=== PATIENT | male | born 1945 | race Caucasian/White ===

== ENCOUNTER 2017-06-26 15:29 | Inpatient (IN) | payer MEDICARE, MEDICAID ==
[2017-06-26] MEDS ORDERED: ASPIRIN 81 MG TABLET, CHEWABLE PO ONE (16:04)
--- NOTE | 2017-06-26 16:15 | ER Document Report ---
ED General - General Chief Complaint: General Weakness Stated Complaint: WEAKNESS/DIZZINESS Time Seen by Provider: 06/26/17 16:04 Notes: Patient was outside on this beautiful day to do some yard work because he is tired of being in his bedroom of his house all the time. He uses a walker to get around, but is never had a stroke. While outside today, he began to feel lightheaded and dizzy and then fell to the ground. He does not know what caused these events, but did vomit once. Patient says he had not eaten anything all day today because he does not have any food at home. He lives with his son who is disabled and unable to work because of a back injury. In the past, he has been a diabetic, although he is not sure if he is on any medicines for diabetes currently and is certainly not on insulin at this time. Patient has a history of cardiac disease. Says he has had 2 heart attacks. Describes some procedure when he lived in [place] where he had stents put in either his coronary arteries or some of the arteries leading to the groin area. Also has high blood pressure. Patient had a pacemaker about 10 years ago and the battery went after 5 years. He had a second pacemaker put in, but developed an infection and that was removed about 2 or 3 years ago. No one is recommended replacing the pacemaker. Patient was seen here at this hospital and had an EKG done on May 10, 2017, showing atrial flutter/fibrillation. Patient does not know of any problems with his heart irregularity. Past Medical History - Social History Smoking Status: Unknown if Ever Smoked Chew tobacco use (# tins/day): No Drug Abuse: None Family History: Reviewed & Not Pertinent Patient has suicidal ideation: No Patient has homicidal ideation: No - Past Medical History Cardiac Medical History: Reports: Hx Hypercholesterolemia, Hx Hypertension Pulmonary Medical History: Reports: Hx COPD Past Surgical History: Reports: Hx Pacemaker Review of Systems - Review of Systems Notes: REVIEW OF SYSTEMS: CONSTITUTIONAL : Denies fever. EENT: Denies eye, ear, nose or mouth or throat pain or other symptoms. CARDIOVASCULAR: Denies chest pain. RESPIRATORY: Denies cough, chest congestion, did feel a little shortness of breath. GASTROINTESTINAL: Denies abdominal pain or nausea, diarrhea, but did vomit once. GENITOURINARY: Denies difficulty or painful urinating, urinary frequency, blood in urine. MUSCULOSKELETAL: Denies back or neck pain. Denies joint pain or swelling. SKIN: Denies rash or skin lesions. NEUROLOGICAL: See HPI. Says he had a slight headache. Denies sensory loss or motor deficits. ALL OTHER SYSTEMS REVIEWED AND NEGATIVE. Physical Exam - Vital signs Vitals: Temp Pulse Resp BP Pulse Ox 97.5 F 57 L 18 102/55 L 96 06/26/17 15:49 06/26/17 15:49 06/26/17 15:49 06/26/17 15:49 06/26/17 15:49 Interpretation: Hypotensive - Minimal, Bradycardic - Minimal. No: Hypoxic - Notes Notes: PHYSICAL EXAMINATION: GENERAL: Well-appearing, in no acute distress. Vital signs are all essentially normal although his blood pressures a slight bit low. His pulse by EKG is 72. HEAD: Atraumatic, normocephalic. EYES: Pupils equal round and reactive to light, extraocular movements intact. ENT: oropharynx clear without exudates. Moist mucous membranes. NECK: Normal range of motion, supple. No carotid bruits heard. LUNGS: Breath sounds clear and equal bilaterally. HEART: Regular rate and rhythm without murmurs. ABDOMEN: Soft, nontender. No guarding or rebound. No masses. BACK: No tenderness throughout entire back. EXTREMITIES: Normal range of motion without pain. NEUROLOGICAL: Normal speech. Patient says that he is unable to walk except when using his walker for assistance. Normal sensory, motor, and reflex exams. Awake, alert, and oriented x3. PSYCH: Normal mood, normal affect. SKIN: Warm, dry, no rashes. Course - Re-evaluation Re-evalutation: 06/26/17 18:[address] Garber, hospitalist on today, agreed that I could go ahead and get a bed assignment for this patient and the oncoming night hospitalist will sheepskin pickler the patient at change of shift after 7 PM. - Vital Signs Vital signs: Temp Pulse Resp BP Pulse Ox 97.5 F 57 L 18 102/55 L 97 06/26/17 15:49 06/26/17 15:49 06/26/17 15:49 06/26/17 15:49 06/26/17 16:11 - Laboratory Result Diagrams: 06/26/17 16:57 06/26/17 16:57 Laboratory results interpreted by me: 06/26/17 16:57 Est GFR (Non-Af Amer) 57 L Direct Bilirubin 0.5 H ALT 17 L Creatine Kinase 54 L Total Protein 6.2 L Albumin 3.4 L - Diagnostic Test Radiology reviewed: Image reviewed, Reports reviewed - CT scan of the brain is normal, except for some atrophy. Radiology results interpreted by me: 06/26/17 18:40 Chest x-ray shows cardiomegaly and a small right pleural effusion. - EKG Interpretation by Me Rate: Normal Rhythm: A.Flutter - With 4:1 block. [place]/QRS: Left axis deviation, IVCD When compared to previous EKG there are: No significant change - From EKG of May 10, 2017. Discharge - Discharge Clinical Impression: Syncope, Atrial flutter, chronic Condition: Stable Disposition: ADMITTED OBSERVATION Admitting Provider: Hospitalist Unit Admitted: Telemetry Referrals: ZOHAIB BUTTERFIELD DO [Primary Care Provider] - Follow up as needed
--- NOTE | 2017-06-26 16:38 | RADIOLOGY REPORT (SQ) ---
EXAM DESCRIPTION: CHEST PA/LAT COMPLETED DATE/TIME: 06/26/2017 4:31 pm REASON FOR STUDY: Syncope COMPARISON: None. EXAM PARAMETERS: NUMBER OF VIEWS: two views TECHNIQUE: Digital Frontal and Lateral radiographic views of the chest acquired. RADIATION DOSE: NA LIMITATIONS: none FINDINGS: LUNGS AND PLEURA: Small right pleural effusion. MEDIASTINUM AND HILAR STRUCTURES: No masses or contour abnormalities. HEART AND VASCULAR STRUCTURES: Cardiomegaly. BONES: No acute findings. HARDWARE: None in the chest. OTHER: No other significant finding. IMPRESSION: Cardiomegaly. Small right pleural effusion. TECHNICAL DOCUMENTATION: JOB ID: [id number] [employer]- All Rights Reserved Reading location - IP/workstation name: [email or web address]
--- NOTE | 2017-06-26 16:58 | RADIOLOGY REPORT (SQ) ---
EXAM DESCRIPTION: CT HEAD WITHOUT COMPLETED DATE/TIME: 06/26/2017 4:44 pm REASON FOR STUDY: Syncope COMPARISON: None. TECHNIQUE: Axial images acquired through the brain without intravenous contrast. Images reviewed wi th bone, brain and subdural windows. Additional sagittal and coronal reconstructions were generated. Images stored on PACS. All CT scanners at this facility use dose modulation, iterative reconstruction, and/or weight based d osing when appropriate to reduce radiation dose to as low as reasonably achievable (ALARA). [facility]: Dose Right [facility]: CareDose [facility]: Dose Right [facility]: Teradose 4D [facility]: Placester RADIATION DOSE: CT Rad equipment meets quality standard of care and radiation dose reduction techniq ues were employed. CTDIvol: 53.2 mGy. DLP: 964 mGy-cm. mGy. LIMITATIONS: None. FINDINGS: VENTRICLES: Mild atrophy. CEREBRUM: No masses. No hemorrhage. No midline shift. No evidence for acute infarction. Mild chron ic small vessel ischemic disease. CEREBELLUM: No masses. No hemorrhage. No alteration of density. No evidence for acute infarction. EXTRAAXIAL SPACES: No fluid collections. No masses. ORBITS AND GLOBE: No intra- or extraconal masses. Normal contour of globe without masses. CALVARIUM: No fracture. PARANASAL SINUSES: Small amount of secretions in the right maxillary sinuses. No mucosal thickening or air-fluid levels. SOFT TISSUES: No mass or hematoma. OTHER: No other significant finding. IMPRESSION: 1. No evidence of acute event involving the brain. 2. Mild atrophy and mild chronic small vessel ischemic disease. EVIDENCE OF ACUTE STROKE: No COMMENT: Quality ID # [id number]: Final reports with documentation of one or more dose reduction techniques (e.g., Automated exposure control, adjustment of the mA and/or kV according to patient size, use of iterative reconstruction technique) TECHNICAL DOCUMENTATION: JOB ID: [id number] [employer]- All Rights Reserved Reading location - IP/workstation name: [email or web address]
[2017-06-26 17:36] LABS: ABSOLUTE EOSINOPHILS # (AUTO) 0.2 10^3/uL (0.0-0.6); ABSOLUTE LYMPHOCYTES (AUTO) 1.1 10^3/uL (0.5-4.7); ABSOLUTE MONOCYTES (AUTO) 0.7 10^3/uL (0.1-1.4); ABSOLUTE NEUT (AUTO) 4.6 10^3/uL (1.7-8.2); BASOPHILS % (AUTO) 0.5 % (0-2); EOSINOPHILS % (AUTO) 2.7 % (0-6); HEMATOCRIT 45.2 % (37.9-51.0); HEMOGLOBIN 15.1 g/dL (13.5-17.0); LYMPHOCYTES % (AUTO) 16.7 % (13-45); MEAN CORPUSCULAR HEMOGLOBIN 31.4 pg (27.0-33.4); MEAN CORPUSCULAR HGB CONC 33.4 g/dL (32.0-36.0); MEAN CORPUSCULAR VOLUME 94 fl (80-97); MONOCYTES % (AUTO) 10.5 % (3-13); PLATELET COUNT 212 10^3/uL (150-450); RED BLOOD COUNT 4.81 10^6/uL (4.35-5.55); RED CELL DISTRIBUTION WIDTH 13.8 % (11.5-14.0); SEGMENTED NEUTROPHILS % (AUTO) 69.6 % (42-78); TOTAL CELLS COUNTED % (AUTO) 100 %; WHITE BLOOD COUNT 6.6 10^3/uL (4.0-10.5)
[2017-06-26 17:51] LABS: ALANINE AMINOTRANSFERASE 17 U/L (21-72); ALBUMIN 3.4 g/dL (3.5-5.0); ALKALINE PHOSPHATASE 81 U/L (38-126); ANION GAP 7 (5-19); ASPARTATE AMINO TRANSFERASE 19 U/L (17-59); BILIRUBIN,DIRECT 0.5 mg/dL (0.0-0.4); BILIRUBIN,TOTAL 0.9 mg/dL (0.2-1.3); BLOOD UREA NITROGEN 14 mg/dL (7-20); CARBON DIOXIDE 29 mmol/L (22-30); CHLORIDE 102 mmol/L (98-107); CREATINE KINASE 54 U/L (55-170); GLUCOSE 96 mg/dL (75-110); POTASSIUM 4.7 mmol/L (3.6-5.0); SODIUM 138.2 mmol/L (137-145); TOTAL PROTEIN 6.2 g/dL (6.3-8.2)
[2017-06-26 17:55] LABS: CREATINE KINASE MB 1.42 ng/mL (<4.55); TROPONIN I 0.022 ng/mL
--- NOTE | 2017-06-26 19:19 | EKG REPORT ---
SEVERITY:- ABNORMAL ECG - A-FLUTTER W/ PREDOM 4:1 AV BLOCK, A-RATE 230 NONSPECIFIC IVCD WITH LAD INFERIOR INFARCT, AGE INDETERMINATE EXTENSIVE ANTERIOR INFARCT, AGE INDETERMINATE : Confirmed by: Jamie Guerra MD 26-Jun-2017 19:19:08
--- NOTE | 2017-06-26 21:10 | RADIOLOGY REPORT (SQ) ---
EXAM DESCRIPTION: CTA CHEST COMPLETED DATE/TIME: 06/26/2017 8:34 pm REASON FOR STUDY: syncope I11.0 HYPERTENSIVE HEART DISEASE WITH HEART FAILURE I50.31 ACUTE DIASTOL IC (CONGESTIVE) HEART FAILURE I11.9 HYPERTENSIVE HEART DISEASE WITHOUT HEART FAILURE COMPARISON: Chest x-ray 06/26/2017 TECHNIQUE: CT scan of the chest performed using helical scanning technique with dynamic intravenous contrast injection. Images reviewed with lung, soft tissue and bone windows. Reconstructed coronal and sagittal MPR images reviewed. Additional 3 dimensional post-processing performed to develop Maximal Intensity Projection images (MS P). All images stored on PACS. All CT scanners at this facility use dose modulation, iterative reconstruction, and/or weight based d osing when appropriate to reduce radiation dose to as low as reasonably achievable (ALARA). [facility]: Dose Right [facility]: CareDose [facility]: Dose Right [facility]: Teradose 4D [facility]: [employer] CONTRAST TYPE AND DOSE: contrast/concentration: Isovue 370.00 mg/ml; Total Contrast Delivered: 81.0 ml; Total Saline Delivered: 70.0 ml Contrast bolus optimized for the pulmonary arteries. Not diagnostic for the aorta. RENAL FUNCTION: BUN 14 creatinine 1.24 RADIATION DOSE: CT Rad equipment meets quality standard of care and radiation dose reduction techniq ues were employed. CTDIvol: 16.5 - 34.8 mGy. DLP: 1352 mGy-cm. . LIMITATIONS: None. FINDINGS: LUNGS AND PLEURA: There is a small right pleural effusion. Mild subsegmental atelectasis in the right base. No acute infiltrate. No mass. AORTA AND GREAT VESSELS: No aneurysm. Contrast bolus not optimized for the aorta. HEART: No pericardial effusion. Moderate to marked coronary artery calcifications. PULMONARY ARTERIES: No emboli visualized in the main pulmonary arteries or the segmental branches. HILAR AND MEDIASTINAL STRUCTURES: No identified masses or abnormal nodes. HARDWARE: None in the chest. UPPER ABDOMEN: No significant findings. Limited exam. THYROID AND OTHER SOFT TISSUES: No thyroid mass. Collateral vessels are seen in the left axilla and upper left chest. BONES: No acute abnormality is appreciated. 3D MIPS: Confirm above findings. OTHER: No other significant finding. IMPRESSION: There is no evidence of pulmonary emboli. There is a small to moderate right pleural ef fusion and mild subsegmental atelectasis in the right base. Collateral vessels are present in the le ft axilla and upper left chest. COMMENT: Quality ID # [id number]: Final reports with documentation of one or more dose reduction techniques (e.g., Automated exposure control, adjustment of the mA and/or kV according to patient size, use of iterative reconstruction technique) TECHNICAL DOCUMENTATION: JOB ID: [id number] [employer]- All Rights Reserved Reading location - IP/workstation name: [email or web address]
[2017-06-26 23:54] LABS: CREATINE KINASE MB 1.16 ng/mL (<4.55); TROPONIN I 0.019 ng/mL
[2017-06-27] MEDS: ATORVASTATIN CALCIUM 80 MG TABLET PO SCH ×2 (03:32→21:11)
--- NOTE | 2017-06-27 04:20 | PDOC H&P ---
History of Present Illness Admission Date/PCP: 06/26/17 18:42 ZOHAIB BUTTERFIELD DO History of Present Illness: ALFONSO ROBLES is a 71 year old male with history of coronary artery disease, status post stent placed 2, hypertension, permanent pacemaker status post removal following infection 3 years ago, A. fib/A flutter without anticoagulation, morbid obesity and generalized debility. Presents after an episode of lightheadedness resulting in a fall off of his seated walker. He denies injury but felt nauseous and vomited gastric content once. In the emergency room he is found to have atrial flutter with a 4-1 block and referred to the hospitalist for admission. Patient is unaware of his medication regiment, but complains of recent discontinuation of opiates for chronic low back pain. He also admits to recurrent falling and lower extremity weakness. Though denies stroke. Past Medical History Cardiac Medical History: Reports: Atrial Fibrillation, Hyperlipidema, Hypertension Pulmonary Medical History: Reports: Chronic Obstructive Pulmonary Disease (COPD) EENT Medical History: Reports: None Neurological Medical History: Reports: None Denies: Hemorrhagic CVA, Ischemic CVA, Seizures Endocrine Medical History: Reports: None Renal/ Medical History: Reports: None Malignancy Medical History: Reports: None GI Medical History: Reports: None Musculoskeltal Medical History: Reports: None Skin Medical History: Reports: None Psychiatric Medical History: Reports: None, Depression Traumatic Medical History: Reports: None Hematology: Reports: None Infectious Medical History: Reports: None Past Surgical History Past Surgical History: Reports: Pacemaker Social History Information Source: Patient Smoking Status: Former Smoker Last Time Smoked: 10 years ago Frequency of Alcohol Use: Rare Hx Recreational Drug Use: No Drugs: None Hx Prescription Drug Abuse: No - Advance Directive Resuscitation Status: Full Code Family History Family History: CAD Parental Family History Reviewed: Yes Children Family History Reviewed: Yes Sibling(s) Family History Reviewed.: Yes Medication/Allergy Home Medications: Amlodipine Besylate [Norvasc 5 mg Tablet] 5 mg PO DAILY 06/26/17 Aspirin [Ecotrin 81 mg EC Tablet] 81 mg PO DAILY 06/26/17 Furosemide [Lasix 20 mg Tablet] 20 mg PO DAILY 06/26/17 Lisinopril [Prinivil 40 mg Tablet] 40 mg PO DAILY 06/26/17 Methocarbamol [Robaxin 750 mg Tablet] 750 mg PO Q6HP PRN 06/26/17 Ondansetron HCl [Zofran 4 mg Tablet] 4 mg PO Q6HP PRN 06/26/17 Ranolazine [Ranexa] 500 mg PO Q12 06/26/17 Sertraline HCl [Zoloft 50 mg Tablet] 50 mg PO DAILY 06/26/17 Allergies/Adverse Reactions: No Known Allergies Allergy (Unverified 06/26/17 20:46) Review of Systems Constitutional: PRESENT: as per HPI, fatigue, weakness. ABSENT: chills, fever(s ), headache(s), weight gain, weight loss Eyes: ABSENT: visual disturbances Ears: ABSENT: hearing changes Cardiovascular: ABSENT: chest pain, dyspnea on exertion, edema, orthropnea, palpitations Respiratory: ABSENT: cough, hemoptysis Gastrointestinal: ABSENT: abdominal pain, constipation, diarrhea, hematemesis, hematochezia, nausea, vomiting Genitourinary: ABSENT: dysuria, hematuria Musculoskeletal: ABSENT: joint swelling Integumentary: ABSENT: rash, wounds Neurological: PRESENT: frequent falls, weakness - Lower extremity weakness. ABSENT: abnormal gait, abnormal speech, confusion, dizziness, focal weakness, syncope Psychiatric: ABSENT: anxiety, depression, homidical ideation, suicidal ideation Endocrine: ABSENT: cold intolerance, heat intolerance, polydipsia, polyuria Hematologic/Lymphatic: ABSENT: easy bleeding, easy bruising Physical Exam Vital Signs: Temp Pulse Resp BP Pulse Ox 98.0 F 67 20 137/80 H 98 06/26/17 22:30 06/26/17 22:30 06/26/17 22:30 06/26/17 22:30 06/26/17 22:30 Intake & Output 06/25/17 06/26/17 06/27/17 11:59 11:59 11:59 Intake Total 0 Output Total 0 Balance 0 Weight 122.5 kg General appearance: PRESENT: no acute distress, morbidly obese, well-developed, well-nourished Head exam: PRESENT: atraumatic, normocephalic Eye exam: PRESENT: conjunctiva pink, EOMI, PERRLA. ABSENT: scleral icterus Ear exam: PRESENT: normal external ear exam Mouth exam: PRESENT: moist, tongue midline Neck exam: ABSENT: carotid bruit, JVD, lymphadenopathy, thyromegaly Respiratory exam: PRESENT: clear to auscultation nacho. ABSENT: rales, rhonchi, wheezes Cardiovascular exam: PRESENT: RRR. ABSENT: diastolic murmur, rubs, systolic murmur Pulses: PRESENT: normal dorsalis pedis pul Vascular exam: PRESENT: normal capillary refill GI/Abdominal exam: PRESENT: normal bowel sounds, soft. ABSENT: distended, guarding, mass, organolmegaly, rebound, tenderness Rectal exam: PRESENT: deferred Extremities exam: PRESENT: full ROM. ABSENT: calf tenderness, clubbing, pedal edema Neurological exam: PRESENT: alert, awake, oriented to person, oriented to place , oriented to time, oriented to situation, CN II-XII grossly intact. ABSENT: motor sensory deficit Psychiatric exam: PRESENT: appropriate affect, normal mood. ABSENT: homicidal ideation, suicidal ideation Skin exam: PRESENT: dry, intact, warm. ABSENT: cyanosis, rash Results Laboratory Results: 06/26/17 23:08 CK-MB (CK-2) 1.16 Troponin I 0.019 Impressions: Chest/Abdomen CTA 06/26/17 00:00 IMPRESSION: There is no evidence of pulmonary emboli. There is a small to moderate right pleural effusion and mild subsegmental atelectasis in the right base. Collateral vessels are present in the left axilla and upper left chest. Chest X-Ray 06/26/17 16:06 IMPRESSION: Cardiomegaly. Small right pleural effusion. Head CT 06/26/17 16:06 IMPRESSION: 1. No evidence of acute event involving the brain. 2. Mild atrophy and mild chronic small vessel ischemic disease. EVIDENCE OF ACUTE STROKE: No Assessment & Plan - Diagnosis (1) Atrial flutter, chronic Is this a current diagnosis for this admission?: Yes Plan: Telemetry admission, orthostatic blood pressures, 2D echo and cardiology consult. (2) Syncope Qualifiers: Syncope type: unspecified Qualified Code(s): R55 - Syncope and collapse Is this a current diagnosis for this admission?: Yes Plan: Concern for cardiogenic syncope follow-up cardiology consult and 2D echo ordered , - Time Time Spent: 30 to 50 Minutes
[2017-06-27 06:15] LABS: HEMATOCRIT 43.2 % (37.9-51.0); HEMOGLOBIN 14.6 g/dL (13.5-17.0); MEAN CORPUSCULAR HEMOGLOBIN 31.8 pg (27.0-33.4); MEAN CORPUSCULAR HGB CONC 33.8 g/dL (32.0-36.0); MEAN CORPUSCULAR VOLUME 94 fl (80-97); PLATELET COUNT 193 10^3/uL (150-450); RED CELL DISTRIBUTION WIDTH 13.8 % (11.5-14.0); WHITE BLOOD COUNT 6.6 10^3/uL (4.0-10.5)
[2017-06-27 06:30] LABS: ANION GAP 7 (5-19); BLOOD UREA NITROGEN 16 mg/dL (7-20); CARBON DIOXIDE 27 mmol/L (22-30); CHLORIDE 104 mmol/L (98-107); CHOLESTEROL 131.46 mg/dL (0-200); CREATINE KINASE 48 U/L (55-170); GLUCOSE 128 mg/dL (75-110); POTASSIUM 4.5 mmol/L (3.6-5.0); SODIUM 138.4 mmol/L (137-145); TRIGLYCERIDES 117 mg/dL (<150)
[2017-06-27 06:40] LABS: CREATINE KINASE MB 1.11 ng/mL (<4.55); TROPONIN I 0.017 ng/mL
[2017-06-27 06:41] LABS: DIRECT LDL 85 mg/dL (<100)
[2017-06-27] MEDS: DOCUSATE SODIUM 100 MG CAPSULE PO SCH ×2 (09:10→18:06)
[2017-06-27] MEDS ORDERED: ACETAMINOPHEN 325 MG TABLET PO PRN (11:47)
[2017-06-27] MEDS ORDERED: MORPHINE SULFATE 10 MG/ML INJ IV PRN (11:48)
--- NOTE | 2017-06-27 12:28 | PDOC CONSULTATION ---
Consultation Consult Date: 06/26/17 Attending physician:: ASTRID CERRATO Consult reason:: Atrial fibrillation History of Present Illness Admission Date/PCP: 06/26/17 18:42 ZOHAIB BUTTERFIELD DO Patient complains of: Syncope History of Present Illness: ALFONSO ROBLES is a 71 year old male was outside on this beautiful day to do some yard work because he is tired of being in his bedroom of his house all the time. He uses a walker to get around, but is never had a stroke. While outside today, he began to feel lightheaded and dizzy and then fell to the ground. He does not know what caused these events, but did vomit once. Patient says he had not eaten anything all day today because he does not have any food at home. He lives with his son who is disabled and unable to work because of a back injury. In the past, he has been a diabetic, although he is not sure if he is on any medicines for diabetes currently and is certainly not on insulin at this time. Patient has a history of cardiac disease. Says he has had 2 heart attacks. Describes some procedure when he lived in [place] where he had stents put in either his coronary arteries or some of the arteries leading to the groin area. Also has high blood pressure. Patient had a pacemaker about 10 years ago and the battery went after 5 years. He had a second pacemaker put in, but developed an infection and that was removed about 2 or 3 years ago. No one is recommended replacing the pacemaker. Patient was seen here at this hospital and had an EKG done on May 10, 2017, showing atrial flutter/fibrillation. Patient does not know of any problems with his heart irregularity. This history obtained by ER physician was reviewed and confirmed. On repeated questioning patient denied any chest pain. He does have shortness of breath on exertion. Patient has noted bilateral lower extremity weakness. Patient denies any history of seizure disorder. Patient denied prior history of strokes , mini strokes, blood clots in the legs are in the lungs. Patient claims that since he moved to [place] from another town, she has not seen a a flow specialist. Patient told me that since his last pacemaker was removed, nobody really addressed the issue of whether he needs a new one on not. Past Medical History Cardiac Medical History: Reports: Hyperlipidema, Hypertension Pulmonary Medical History: Reports: Chronic Obstructive Pulmonary Disease (COPD) Past Surgical History Past Surgical History: Reports: Pacemaker - Battery change out and then explantation. Social History Information Source: Patient Smoking Status: Unknown if Ever Smoked - Advance Directive Resuscitation Status: Full Code Surrogate healthcare decision maker:: Patient's son is the surrogate decision-maker Family History Family History: Hypertension Parental Family History Reviewed: Yes Children Family History Reviewed: Yes Sibling(s) Family History Reviewed.: Yes Medication/Allergy Home Medications: Amlodipine Besylate [Norvasc 5 mg Tablet] 5 mg PO DAILY 06/26/17 Aspirin [Ecotrin 81 mg EC Tablet] 81 mg PO DAILY 06/26/17 Furosemide [Lasix 20 mg Tablet] 20 mg PO DAILY 06/26/17 Lisinopril [Prinivil 40 mg Tablet] 40 mg PO DAILY 06/26/17 Methocarbamol [Robaxin 750 mg Tablet] 750 mg PO Q6HP PRN 06/26/17 Ondansetron HCl [Zofran 4 mg Tablet] 4 mg PO Q6HP PRN 06/26/17 Ranolazine [Ranexa] 500 mg PO Q12 06/26/17 Sertraline HCl [Zoloft 50 mg Tablet] 50 mg PO DAILY 06/26/17 Allergies/Adverse Reactions: No Known Allergies Allergy (Unverified 06/26/17 20:46) Review of Systems Review of Systems: Please see history of present illness and past medical history as wall. Constitutional: No fever or chills reported. Head : No recent chronic headaches, recent head injury. Eyes: No recent eye pain, diplopia, redness, discharge, acute visual changes. Ears: No recent chronic ear pain, acute hearing loss, ear discharge. Oral cavity: No recent ulcerations, bleeding, oral cavity discomfort. Neck: No recent acute neck pain reported. Hematologic: No recent easy bruising or bleeding or hematologic malignancy reported. Lymphatic: No recent lymphatic malignancy, chronic lymphadenopathy reported yet Cardiovascular system review: See history of present illness. Respiratory system review: No recent chronic cough, hemoptysis, blood clots in the lungs reported. Mild Shortness of breath on exertion Gastrointestinal system review: Negative for any recent acute or chronic abdominal pain, hematemesis, melena, recent change in bowel habits. Describes history of reflux Genitourinary system review: No recent acute or chronic hematuria, flank pain, UTI etc. reported. Skin system review: Negative for any recent abnormal bruising, no rash, no pruritus reported. Neurologic: No prior history of strokes, mini strokes, seizure disorder. Psychologic: No history of major psychosis or major depression reported. History of minor depression reported. Musculoskeletal: Minor aches and pains reported. No acute joint swelling reported. Describes generalized muscle weakness and some falls. Endocrine: No recent polyuria, polydipsia, recent heat or cold intolerance. Physical Exam Vital Signs: Temp Pulse Resp BP Pulse Ox 97.5 F 57 L 18 102/55 L 97 06/26/17 15:49 06/26/17 15:49 06/26/17 15:49 06/26/17 15:49 06/26/17 16:11 Exam: GENERAL: well-nourished and in no acute distress. Alert and oriented x3 HEAD: Atraumatic, normocephalic. EYES: Pupils equal round and reactive to light, extraocular movements intact, sclera anicteric, conjunctiva are normal. ENT: TMs normal, nares patent, oropharynx clear without exudates. Moist mucous membranes. No oral ulcerations or bleeding gums noted NECK: supple without lymphadenopathy. Trachea is central. No cervical or axillary lymphadenopathy noted. Carotids are 2+, JVD WNL LUNGS: Respiration seems nonlabored, no significant accessory muscle action noted. Breath sounds clear to auscultation bilaterally and equal noted. No wheezes rales or rhonchi noted. No significant dullness noted on percussion. CHEST: Palpation of the chest wall shows no significant chest wall tenderness. No other significant abnormalities noted. 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 ABDOMEN: Soft, no significant tenderness appreciated, normoactive bowel sounds. No guarding, no rebound. No rigidity noted . No masses appreciated. EXTREMITIES: Pedal pulses are 1-2+, no calf tenderness noted. No clubbing or cyanosis.trace to 1+ pedal edema noted NEUROLOGICAL: Focused neurological exam showed no significant neurologic deficit. Normal speech, no focal weakness appreciated. PSYCH: Normal mood, normal affect. Judgment and insight within normal limits. SKIN: No significant ecchymosis, skin is noted to be warm. MUSCULOSKELETAL EXAM: No significant acute joint swelling noted. Results EKG Comments: Atrial flutter with controlled ventricular response. No acute ST-T wave changes are noted. Impressions: Chest X-Ray 06/26/17 16:06 IMPRESSION: Cardiomegaly. Small right pleural effusion. Head CT 06/26/17 16:06 IMPRESSION: 1. No evidence of acute event involving the brain. 2. Mild atrophy and mild chronic small vessel ischemic disease. EVIDENCE OF ACUTE STROKE: No Assessment & Plan - Diagnosis (1) Atrial flutter, chronic Is this a current diagnosis for this admission?: Yes (2) Syncope Qualifiers: Syncope type: unspecified Qualified Code(s): R55 - Syncope and collapse Is this a current diagnosis for this admission?: Yes (3) Hypertension Qualifiers: Hypertension type: essential hypertension Qualified Code(s): I10 - Essential (primary) hypertension Is this a current diagnosis for this admission?: Yes (4) Falls Qualifiers: Encounter type: sequela Qualified Code(s): W19.XXXS - Unspecified fall, sequela Is this a current diagnosis for this admission?: Yes (5) Coronary artery disease Qualifiers: Coronary Disease-Associated Artery/Lesion type: [place] artery [place] vs. transplanted heart: [place] heart Associated angina: angina presence unspecified Qualified Code(s): I25.10 - Atherosclerotic heart disease of [place] coronary artery without angina pectoris (6) Obesity Qualifiers: Obesity type: unspecified obesity type Obesity classification: unspecified obesity classification Is this a current diagnosis for this admission?: Yes - Notes Notes: Atrial flutter fibrillation: At this point rate is well controlled. Recommend chronic anticoagulation. May need OT PT assessment because of history of fall. Syncope: Multiple differential diagnosis includes cardiac dysrhythmia, either bradycardia or tachyarrhythmia, postural hypotension, vertebrobasilar insufficiency etc. are in the differential diagnosis. Recommend cardiac monitoring. Patient may actually need cardiac monitoring as an outpatient. Hypertension: Currently stable. Recommend MELODY inhibitor/ARB as preferred agent. Falls: Patient will benefit from physical therapy, OT PT assessment. Coronary artery disease: Patient noted to have coronary calcification versus stents in the coronaries. Recommend statin therapy, antiplatelet therapy. Obesity: Patient will benefit from weight loss. Patient will also benefit from evaluation for any underlying sleep apnea as treatment of underlying sleep apnea may prevent future cardiovascular event and also needs for pacemaker. - Time Time Spent: 30 to 50 Minutes - CODE STATUS was discussed, patient remains full code. Surrogate decision-maker unchanged. Multiple medical problems were addressed. More than 50% of the time spent coordinating care, discussing management plans with involved caregivers. Management plans discussed with involved personnels. Medical decision making was of moderate to high complexity , patient's has multiple comorbidities. Medications reviewed and adjusted accordingly: Yes
--- NOTE | 2017-06-27 12:30 | PDOC PROGRESS REPORT ---
Subjective Progress Note for:: 06/27/17 Subjective:: Patient seems to be doing better with gradual improvement. Pt is denying any chest arm or neck discomfort. Patient denying any PND, orthopnea. Patient denied any sustained palpitations, dizziness, syncope, near syncope. Patient denying any fever chills. Patient denying any other significant discomfort. Patient is maintaining atrial flutter fibrillation. Review of systems: Rest review of systems negative. Medications: Medications have been reviewed. Reason For Visit: AFLUTTER SYNCOPE Physical Exam Vital Signs: Temp Pulse Resp BP Pulse Ox 98.0 F 56 L 18 125/46 L 99 06/27/17 10:56 06/27/17 10:56 06/27/17 10:56 06/27/17 10:56 06/27/17 10:56 Intake & Output 06/26/17 06/27/17 06/28/17 06:59 06:59 06:59 Intake Total 810 600 Output Total 650 400 Balance 160 200 Weight 123 kg Exam: GENERAL: well-nourished and in no acute distress. Alert and oriented x3 HEAD: Atraumatic, normocephalic. EYES: Pupils equal round and reactive to light, extraocular movements intact, sclera anicteric, conjunctiva are normal. ENT: TMs normal, nares patent, oropharynx clear without exudates. Moist mucous membranes. No oral ulcerations or bleeding gums noted NECK: supple without lymphadenopathy. Trachea is central. No cervical or axillary lymphadenopathy noted. Carotids are 2+, JVD WNL LUNGS: Respiration seems nonlabored, no significant accessory muscle action noted. Breath sounds clear to auscultation bilaterally and equal noted. No wheezes rales or rhonchi noted. No significant dullness noted on percussion. CHEST: Palpation of the chest wall shows no significant chest wall tenderness. No other significant abnormalities noted. 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 ABDOMEN: Soft, no significant tenderness appreciated, normoactive bowel sounds. No guarding, no rebound. No rigidity noted . No masses appreciated. EXTREMITIES: Pedal pulses are 1-2+, no calf tenderness noted. No clubbing or cyanosis.trace to 1+ pedal edema noted NEUROLOGICAL: Focused neurological exam showed no significant neurologic deficit. Normal speech, no focal weakness appreciated. PSYCH: Normal mood, normal affect. Judgment and insight within normal limits. SKIN: No significant ecchymosis, skin is noted to be warm. MUSCULOSKELETAL EXAM: No significant acute joint swelling noted. Results Laboratory Results: 06/27/17 05:17 06/27/17 05:17 06/27/17 06/27/17 05:17 05:17 WBC 6.6 RBC 4.60 Hgb 14.6 Hct 43.2 MCV 94 MCH 31.8 MCHC 33.8 RDW 13.8 Plt Count 193 Sodium 138.4 Potassium 4.5 Chloride 104 Carbon Dioxide 27 Anion Gap 7 BUN 16 Creatinine 1.05 Est GFR ( Amer) > 60 Est GFR (Non-Af Amer) > 60 Glucose 128 H Calcium 9.0 Triglycerides 117 Cholesterol 131.46 LDL Cholesterol Direct 85 VLDL Cholesterol 23.0 HDL Cholesterol 28 L 06/26/17 06/27/17 06/27/17 23:08 05:17 05:17 Creatine Kinase 48 L CK-MB (CK-2) 1.16 1.11 Troponin I 0.019 0.017 EKG Comments: Shows atrial flutter fibrillation with controlled ventricular response Impressions: Chest/Abdomen CTA 06/26/17 00:00 IMPRESSION: There is no evidence of pulmonary emboli. There is a small to moderate right pleural effusion and mild subsegmental atelectasis in the right base. Collateral vessels are present in the left axilla and upper left chest. Chest X-Ray 06/26/17 16:06 IMPRESSION: Cardiomegaly. Small right pleural effusion. Head CT 06/26/17 16:06 IMPRESSION: 1. No evidence of acute event involving the brain. 2. Mild atrophy and mild chronic small vessel ischemic disease. EVIDENCE OF ACUTE STROKE: No Assessment & Plan - Diagnosis (1) Atrial flutter, chronic Is this a current diagnosis for this admission?: Yes (2) Syncope Qualifiers: Syncope type: unspecified Qualified Code(s): R55 - Syncope and collapse Is this a current diagnosis for this admission?: Yes (3) Hypertension Qualifiers: Hypertension type: essential hypertension Qualified Code(s): I10 - Essential (primary) hypertension Is this a current diagnosis for this admission?: Yes (4) Falls Qualifiers: Encounter type: sequela Qualified Code(s): W19.XXXS - Unspecified fall, sequela Is this a current diagnosis for this admission?: Yes (5) Coronary artery disease Qualifiers: Coronary Disease-Associated Artery/Lesion type: [place] artery [place] vs. transplanted heart: [place] heart Associated angina: angina presence unspecified Qualified Code(s): I25.10 - Atherosclerotic heart disease of [place] coronary artery without angina pectoris (6) Obesity Qualifiers: Obesity type: unspecified obesity type Obesity classification: unspecified obesity classification Is this a current diagnosis for this admission?: Yes (7) CHF (congestive heart failure) Qualifiers: Heart failure type: combined systolic and diastolic Heart failure chronicity: chronic Qualified Code(s): I50.42 - Chronic combined systolic ( congestive) and diastolic (congestive) heart failure Is this a current diagnosis for this admission?: No - Notes Notes: Telemetry strips reviewed. No significant bradycardia noted. 2D echo reviewed. Shows mildly depressed LVEF. Will make medication changes. CTA results of the chest are reviewed. Patient is noted to have coronary calcification versus stent in the LAD and circumflex distribution. Atrial flutter fibrillation: At this point rate is well controlled. Recommend chronic anticoagulation. May need OT PT assessment because of history of fall. Syncope: Multiple differential diagnosis includes cardiac dysrhythmia, either bradycardia or tachyarrhythmia, postural hypotension, vertebrobasilar insufficiency etc. are in the differential diagnosis. Recommend cardiac monitoring. Patient may actually need cardiac monitoring as an outpatient. Hypertension: Currently stable. Recommend MELODY inhibitor/ARB as preferred agent. Falls: Patient will benefit from physical therapy, OT PT assessment. Coronary artery disease: Patient noted to have coronary calcification versus stents in the coronaries. Recommend statin therapy, antiplatelet therapy. Obesity: Patient will benefit from weight loss. Patient will also benefit from evaluation for any underlying sleep apnea as treatment of underlying sleep apnea may prevent future cardiovascular event and also needs for pacemaker. CHF: Seems fairly compensated. Patient would benefit from salt and fluid restriction. Will add small dose of MELODY inhibitor/ARB. Beta-blockers currently contraindicated due to bradycardia. - Time Time with patient: Greater than 35 minutes - CODE STATUS was discussed, patient remains full code. Surrogate decision-maker unchanged. Multiple medical problems were addressed. More than 50% of the time spent coordinating care, discussing management plans with involved caregivers. Management plans discussed with involved personnels. Medical decision making was of moderate to high complexity, patient's has multiple comorbidities. Medications reviewed and adjusted accordingly: Yes
[2017-06-27] MEDS ORDERED: LISINOPRIL 5 MG TABLET PO ONE (13:30)
[2017-06-27] MEDS ORDERED: INFLUENZA ADLT QUAD (36MOS+) 2017-18 VAC 0.5 ML SYR IM PRN (16:25)
[2017-06-27] MEDS: APIXABAN 2.5 MG TABLET PO SCH (18:01)
[2017-06-27] MEDS: OXYCODONE HCL IR 5 MG TABLET PO PRN ×2 (18:03→23:14)
--- NOTE | 2017-06-27 18:42 | XCELERA REPORT ---
[address] [address] Transthoracic Echocardiogram Report Name: ALFONSO ROBLES Age: 71 yrs Gender: Male : 1945 Patient Status: Inpatient Patient Location: [address] [place] [address] Study Date: 06/27/2017 09:26 AM Height: 71 in Weight: 271 lb BSA: 2.4 m2 Procedure: A complete two-dimensional transthoracic echocardiogram was performed (2D, M-mode, spectral and color flow Doppler). The study was technically adequate with some images being suboptimal in quality. Reason For Study: syncope Ordering Physician: ASTRID CERRATO Performed By: Tamiko Markham Interpretation Summary The Ejection Fraction estimate is 40-45% Left ventricular systolic function is mild to moderately reduced. There is mild concentric left ventricular hypertrophy. Doppler measurements suggest pseudonormalized left ventricular relaxation, which is associated with grade II/IV or mild to moderate diastolic dysfunction There is apical wall akinesis The left ventricle is mildly dilated. Borderline right ventricular enlargement. The right ventricular systolic function is normal. The left atrium is severely dilated. The right atrium is mildly dilated. There is a trace amount of mitral regurgitation There is no mitral valve stenosis. No aortic regurgitation is present. There is no aortic valve stenosis There is a trace or physiologic amount of tricuspid regurgitation Tricuspid regurgitation jet envelope not well defined to measure RV systolic pressure accurately. The aortic root is not well visualized. The inferior vena cava appeared normal and decreased > 50% with respiration (RAP 5-10 mmHg) There is no pericardial effusion. MMode/2D Measurements & Calculations RVDd: 3.9 cm LVIDd: 6.5 cm FS: 22.5 % Ao root diam: IVSd: 1.1 cm LVIDs: 5.0 cm EDV(Teich): 3.3 cm LVPWd: 1.1 cm 212.4 ml Ao root area: ESV(Teich): 118.3 ml 8.4 cm2 EF(Teich): 44.3 % LA dimension: 5.2 cm LVLd ap4: 9.3 cm SV(MOD-sp4): EDV(MOD-sp4): 53.0 ml 135.0 ml LVLs ap4: 8.1 cm ESV(MOD-sp4): 82.0 ml EF(MOD-sp4): 39.3 % Doppler Measurements & Calculations MV E max aura: MV P1/2t max aura: Ao V2 max: LV V1 max P.3 cm/sec 125.9 cm/sec 142.5 cm/sec 1.8 mmHg MV A max aura: MV P1/2t: 62.6 msec Ao max PG: LV V1 max: 54.8 cm/sec MVA(P1/2t): 3.5 cm2 8.1 mmHg 67.1 cm/sec MV E/A: 2.3 MV dec slope: 588.8 cm/sec2 MV dec time: 0.20 sec PA V2 max: PI end-d aura: TR max aura: 80.5 cm/sec 152.0 cm/sec 234.8 cm/sec PA max P.6 mmHg TR max P.1 mmHg Left Ventricle The left ventricle is mildly dilated. There is mild concentric left ventricular hypertrophy. Left ventricular systolic function is mild to moderately reduced. The Ejection Fraction estimate is 40-45%. Doppler measurements suggest pseudonormalized left ventricular relaxation, which is associated with grade II/IV or mild to moderate diastolic dysfunction. There is apical wall akinesis. Right Ventricle Borderline right ventricular enlargement. There is normal right ventricular wall thickness. The right ventricular systolic function is normal. Atria The right atrium is mildly dilated. The left atrium is severely dilated. Interarterial septum not well visualized and not well dopplered. Cannot comment on ASD/PFO presence. Mitral Valve There is mild mitral leaflet calcification. There is mild mitral annular calcification. There is no mitral valve stenosis. There is a trace amount of mitral regurgitation. Aortic Valve The aortic valve is mildly calcified. There is no aortic valve stenosis. No aortic regurgitation is present. Tricuspid Valve The tricuspid valve is not well visualized secondary to technical limitations. There is no tricuspid stenosis. There is a trace or physiologic amount of tricuspid regurgitation. Tricuspid regurgitation jet envelope not well defined to measure RV systolic pressure accurately. Pulmonic Valve The pulmonic valve is not well visualized. Great Vessels The aortic root is not well visualized. The inferior vena cava appeared normal and decreased > 50% with respiration (RAP 5-10 mmHg). Effusions There is no pericardial effusion. : ASTRID CERRATO > Jamie Guerra
--- NOTE | 2017-06-27 22:15 | PDOC PROGRESS REPORT ---
Subjective Progress Note for:: 06/27/17 Subjective:: Syncope episode described after the activity of raking leaves. He recently had a 30 day security monitor and results were pending. His nurse was able to obtain these records and they indicated that he is in aflutter w/ variable block with periods of bradycardia, frequently in his sleep. His past record also demonstrates SSS. Patient had a prior pacemaker inserted, which was years later replaced by Dr. Benson in [place], but unfortunately suffered a bad course with infection and removal. On f/u with Dr. Benson he was told that he could avoid having it replaced at that time. I believe that his bradycardia is symptomatic. This was discussed with Dr. Stark. He was concern also about ANGELY contributing here. Patient has maintained an acceptable HR on monitor while inpatient. He has no electricity at home and limited food access. D/c planning requested for help. Patient is interested in doing f/u appts w/ Dr. 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 Patient takes significant opiate pain medicaitons which maybe contributing to his cardiovascular instabilty at home. Reason For Visit: AFLUTTER SYNCOPE Physical Exam Vital Signs: Temp Pulse Resp BP Pulse Ox 98.2 F 70 18 120/57 L 99 06/27/17 15:00 06/27/17 19:00 06/27/17 15:00 06/27/17 15:02 06/27/17 15:02 Intake & Output 06/26/17 06/27/17 06/28/17 06:59 06:59 06:59 Intake Total 810 1310 Output Total 650 975 Balance 160 335 Weight 123 kg General appearance: PRESENT: no acute distress, disheveled Head exam: PRESENT: atraumatic, normocephalic Eye exam: PRESENT: EOMI, PERRLA Ear exam: PRESENT: TM's normal bilaterally Mouth exam: PRESENT: neck supple Neck exam: PRESENT: JVD. ABSENT: full ROM Respiratory exam: ABSENT: accessory muscle use, chest wall tenderness, rales, rhonchi, wheezes Cardiovascular exam: PRESENT: irregular rhythm, +S1, +S2. ABSENT: clicks, gallop Pulses: PRESENT: normal radial pulses, normal dorsalis pedis pul Vascular exam: PRESENT: normal capillary refill. ABSENT: pallor GI/Abdominal exam: PRESENT: normal bowel sounds. ABSENT: mass Extremities exam: ABSENT: calf tenderness, joint swelling Musculoskeletal exam: PRESENT: full ROM. ABSENT: deformity Neurological exam: PRESENT: alert, oriented to person, oriented to place, oriented to time, oriented to situation Psychiatric exam: ABSENT: agitated, anxious Focused psych exam: ABSENT: delusional, paranoid Skin exam: ABSENT: abrasion, cyanosis, mottled Results Laboratory Results: 06/27/17 05:17 06/27/17 05:17 06/27/17 06/27/17 05:17 05:17 WBC 6.6 RBC 4.60 Hgb 14.6 Hct 43.2 MCV 94 MCH 31.8 MCHC 33.8 RDW 13.8 Plt Count 193 Sodium 138.4 Potassium 4.5 Chloride 104 Carbon Dioxide 27 Anion Gap 7 BUN 16 Creatinine 1.05 Est GFR ( Amer) > 60 Est GFR (Non-Af Amer) > 60 Glucose 128 H Calcium 9.0 Triglycerides 117 Cholesterol 131.46 LDL Cholesterol Direct 85 VLDL Cholesterol 23.0 HDL Cholesterol 28 L 06/26/17 06/27/17 06/27/17 23:08 05:17 05:17 Creatine Kinase 48 L CK-MB (CK-2) 1.16 1.11 Troponin I 0.019 0.017 Impressions: Chest/Abdomen CTA 06/26/17 00:00 IMPRESSION: There is no evidence of pulmonary emboli. There is a small to moderate right pleural effusion and mild subsegmental atelectasis in the right base. Collateral vessels are present in the left axilla and upper left chest. Chest X-Ray 06/26/17 16:06 IMPRESSION: Cardiomegaly. Small right pleural effusion. Head CT 06/26/17 16:06 IMPRESSION: 1. No evidence of acute event involving the brain. 2. Mild atrophy and mild chronic small vessel ischemic disease. EVIDENCE OF ACUTE STROKE: No Assessment & Plan - Plan Summary Plan Summary: (1) Atrial flutter, chronic Is this a current diagnosis for this admission?: Yes Plan: orthostatics appeared normal today. holter report from outside suggests bradycardia with his variable block aflutter , suspect this is the etiology, and he will likely benefit from a pacemaker. Dr. Stark following. starting anticoagulation. starting low dose MELODY, agree that patient's rate cannot support a Beta vincent. (2) Syncope Qualifiers: Syncope type: unspecified Qualified Code(s): R55 - Syncope and collapse Is this a current diagnosis for this admission?: Yes Plan: see above (3) Chronic lower extremity pain giving lower dose oxycodone, tylenol. monitor
[2017-06-28] MEDS: OXYCODONE HCL IR 5 MG TABLET PO PRN (04:50)
[2017-06-28] MEDS: APIXABAN 2.5 MG TABLET PO SCH (09:52)
[2017-06-28] MEDS: DOCUSATE SODIUM 100 MG CAPSULE PO SCH (09:54)
[2017-06-28] MEDS ORDERED: LISINOPRIL 5 MG TABLET PO SCH (10:00)
[2017-06-28 10:58] VITALS: BP 119/67
--- NOTE | 2017-06-28 12:27 | PDOC TRANSFER SUMMARY ---
General Admission Date/PCP: 06/26/17 18:42 ZOHAIB BUTTERFIELD Admission Date: 06/26/17 Transfer Date: 06/28/17 Accepting Facility: [facility] Accepting Physician: Dr. Lopes Resuscitation Status: Full Code - Transfer Diagnosis (1) Syncope Is this a current diagnosis for this admission?: Yes (2) Bradycardia Is this a current diagnosis for this admission?: Yes (3) Atrial flutter, chronic Is this a current diagnosis for this admission?: Yes (4) CHF (congestive heart failure) Is this a current diagnosis for this admission?: Yes (5) Coronary artery disease Is this a current diagnosis for this admission?: Yes (6) Falls Is this a current diagnosis for this admission?: Yes (7) Hypertension Is this a current diagnosis for this admission?: Yes (8) Obesity Is this a current diagnosis for this admission?: Yes - Transfer Medications Home Medications: Aspirin [Ecotrin 81 mg EC Tablet] 81 mg PO DAILY 06/26/17 Ondansetron HCl [Zofran 4 mg Tablet] 4 mg PO Q6HP PRN 06/26/17 Ranolazine [Ranexa] 500 mg PO Q12 06/26/17 Sertraline HCl [Zoloft 50 mg Tablet] 50 mg PO DAILY 06/26/17 Transfer Medications: Current Medications Acetaminophen (Tylenol 325 Mg Tablet) 650 mg PO Q4HP PRN PRN Reason: ps 2-3 Stop: 07/27/17 11:46 Last Admin: 06/27/17 12:27 Dose: 650 mg Apixaban (Eliquis 2.5 Mg Tablet) 5 mg PO BID [facility] Stop: 07/27/17 17:59 Last Admin: 06/28/17 09:52 Dose: 5 mg Atorvastatin Calcium (Lipitor 80 Mg Tablet) 80 mg PO QHS [facility] Stop: 07/26/17 21:59 Last Admin: 06/27/17 21:11 Dose: 80 mg Docusate Sodium (Colace 100 Mg Capsule) 100 mg PO BID [facility] Stop: 07/27/17 09:59 Last Admin: 06/28/17 09:54 Dose: Not Given Influenza Virus Vaccine Quadrival (Fluzone Adlt Quad [id number] Vac 0.5 Ml Syr) 0.5 ml IM .DISCHARGE PRN PRN Reason: THIS MED IS NOT "PRN" Stop: 07/27/17 16:24 Lisinopril (Prinivil 5 Mg Tablet) 2.5 mg PO DAILY [facility] Stop: 07/28/17 09:59 Last Admin: 06/28/17 09:53 Dose: 2.5 mg Morphine Sulfate (Morphine 10 Mg/Ml Inj) 2 mg IV Q6HP PRN PRN Reason: ps 4-5 Stop: 07/04/17 11:47 Oxycodone HCl (Oxy-Ir 5 Mg Tablet) 5 mg PO Q6HP PRN PRN Reason: ps 4-5 Stop: 07/04/17 17:07 Last Admin: 06/28/17 04:50 Dose: 5 mg Sodium Chloride (Saline Flush 2.5 Ml Monoject Prefil Syrin) 2.5 ml IV Q8 [facility] Stop: 07/26/17 21:59 Last Admin: 06/28/17 04:50 Dose: 2.5 ml - Allergies Allergies/Adverse Reactions: No Known Allergies Allergy (Unverified 06/26/17 20:46) - Diet/Activity Discharge Diet: Cardiac Hospital Course Hospital Course: ALFONSO ROBLES is a 71 year old male with history of coronary artery disease, status post stent placed 2, hypertension, permanent pacemaker status post removal following infection 3 years ago, A. fib/A flutter without anticoagulation, morbid obesity and generalized debility. Presents after an episode of lightheadedness resulting in a fall off of his seated walker. He denies injury but felt nauseous and vomited gastric content once. In the emergency room he is found to have atrial flutter with a 4-1 block and referred to the hospitalist for admission. Patient is unaware of his medication regiment, but complains of recent discontinuation of opiates for chronic low back pain. He also admits to recurrent falling and lower extremity weakness. Though denies stroke. Patient describes taking significant opiate medication doses at home that may be contributing to his falls history. However, without significant opiates here inpatient he continued to display variable block aflutter with Bradycardia in the 50s, with occassional symptom complaints of dizziness. No AV brooke medications were given. Cardiology did evaluate the patient and treated him with Eliquis. He had not been on this in the past due to falls hx. Has a hx of pacemaker many years ago in which his battery ran out approximately 3 years ago. An attempt at a replacement pacemaker was made by Dr. Benson in [place] with a complication of infection. Patient had the pacer removed. And in follow up he describes being told that it was no longer needed at that time. He was recently given a holter monitor, which showed chronic aflutter and an average HR of 65, and bradycardic peroids. Presenting this admission with syncope after raking leaves in his home. Orthostatic testing was negative. High concern that this patient has symptomatic Bradycardia contributing to syncope and possibly to his falls hxRudy Savage agreed to take the patient in transfer and evaluate for possible pacemaker placement. Physical Exam Vital Signs: Temp Pulse Resp BP Pulse Ox 98.2 F 57 L 18 119/67 94 06/28/17 10:49 06/28/17 10:49 06/28/17 10:49 06/28/17 10:49 06/28/17 10:49 Intake & Output 06/27/17 06/28/17 06/29/17 06:59 06:59 06:59 Intake Total 810 2460 800 Output Total 650 3325 650 Balance 160 -865 150 Weight 123 kg 124.3 kg General appearance: PRESENT: no acute distress, morbidly obese Head exam: PRESENT: atraumatic, normocephalic Eye exam: PRESENT: EOMI, PERRLA. ABSENT: nystagmus, periorbital swelling Ear exam: PRESENT: normal external ear exam. ABSENT: bleeding, drainage Mouth exam: PRESENT: moist, neck supple Neck exam: PRESENT: full ROM. ABSENT: JVD, tenderness Respiratory exam: ABSENT: accessory muscle use, crackles, rales, rhonchi, wheezes Cardiovascular exam: PRESENT: bradycardia, irregular rhythm, +S1, +S2, systolic murmur Pulses: PRESENT: normal radial pulses, normal dorsalis pedis pul Vascular exam: PRESENT: normal capillary refill, other - 2+ radial pulses GI/Abdominal exam: PRESENT: normal bowel sounds, soft. ABSENT: ascites, firm, mass Extremities exam: ABSENT: calf tenderness, joint swelling Musculoskeletal exam: PRESENT: full ROM. ABSENT: ambulatory Neurological exam: PRESENT: alert, oriented to person, oriented to place, oriented to time, oriented to situation, CN II-XII grossly intact Psychiatric exam: ABSENT: agitated, anxious, flat affect Focused psych exam: ABSENT: delusional, paranoid Skin exam: PRESENT: normal color. ABSENT: abrasion, cyanosis Results Laboratory Results: 06/27/17 05:17 06/27/17 05:17 06/26/17 06/27/17 06/27/17 23:08 05:17 05:17 Creatine Kinase 48 L CK-MB (CK-2) 1.16 1.11 Troponin I 0.019 0.017 Impressions: Chest/Abdomen CTA 06/26/17 00:00 IMPRESSION: There is no evidence of pulmonary emboli. There is a small to moderate right pleural effusion and mild subsegmental atelectasis in the right base. Collateral vessels are present in the left axilla and upper left chest. Chest X-Ray 06/26/17 16:06 IMPRESSION: Cardiomegaly. Small right pleural effusion. Head CT 06/26/17 16:06 IMPRESSION: 1. No evidence of acute event involving the brain. 2. Mild atrophy and mild chronic small vessel ischemic disease. EVIDENCE OF ACUTE STROKE: No Plan Discharge Plan: (1) Atrial flutter, chronic orthostatics appeared normal Bradycardia in 50s with mild symptoms inpatient holter report from outside suggests bradycardia with his variable block aflutter , suspect this is the etiology, and he will likely benefit from a pacemaker. [facility] agrees to transfer for pacemaker evaluation Patient has a hx of prior pacemakers, last removed due to infection. (2) Syncope prior to admission, likely secondary to Bradycardia see above comments (3) Chronic lower extremity pain giving lower dose prn oxycodone, tylenol. monitor Time Spent: Greater than 30 Minutes
--- NOTE | 2017-06-28 13:23 | PDOC PROGRESS REPORT ---
Subjective Progress Note for:: 06/28/17 Subjective:: Patient seems to be doing better with gradual improvement. Pt is denying any chest arm or neck discomfort. Patient denying any PND, orthopnea. Patient denied any sustained palpitations, dizziness, syncope, near syncope. Patient denying any fever chills. Patient denying any other significant discomfort. Patient has noted generalized fatigue. Patient is maintaining atrial flutter fibrillation. Heart rate has been stable. Review of systems: Rest review of systems negative. Medications: Medications have been reviewed. Reason For Visit: AFLUTTER SYNCOPE Physical Exam Vital Signs: Temp Pulse Resp BP Pulse Ox 98.2 F 57 L 18 119/67 94 06/28/17 10:49 06/28/17 10:49 06/28/17 10:49 06/28/17 10:49 06/28/17 10:49 Intake & Output 06/27/17 06/28/17 06/29/17 06:59 06:59 06:59 Intake Total 810 2460 800 Output Total 650 3325 650 Balance 160 -865 150 Weight 123 kg 124.3 kg Exam: GENERAL: well-nourished and in no acute distress. Alert and oriented x3 HEAD: Atraumatic, normocephalic. EYES: Pupils equal round and reactive to light, extraocular movements intact, sclera anicteric, conjunctiva are normal. ENT: TMs normal, nares patent, oropharynx clear without exudates. Moist mucous membranes. No oral ulcerations or bleeding gums noted NECK: supple without lymphadenopathy. Trachea is central. No cervical or axillary lymphadenopathy noted. Carotids are 2+, JVD WNL LUNGS: Respiration seems nonlabored, no significant accessory muscle action noted. Bibasilar fine crackles are noted. No wheezes rales or rhonchi noted. No significant dullness noted on percussion. CHEST: Palpation of the chest wall shows no significant chest wall tenderness. No other significant abnormalities noted. HEART: [place] [employer], No PSH, 1/6 [place]OR[place] aortic area, 1/6 harris systolic murmur mitral area, no rubs, no gallops. ABDOMEN: Soft, no significant tenderness appreciated, normoactive bowel sounds. No guarding, no rebound. No rigidity noted . No masses appreciated. EXTREMITIES: Pedal pulses are 1-2+, no calf tenderness noted. No clubbing or cyanosis.trace to 1+ pedal edema noted NEUROLOGICAL: Focused neurological exam showed no significant neurologic deficit. Normal speech, no focal weakness appreciated. PSYCH: Normal mood, normal affect. Judgment and insight within normal limits. SKIN: No significant ecchymosis, skin is noted to be warm. MUSCULOSKELETAL EXAM: No significant acute joint swelling noted. Results Laboratory Results: 06/27/17 05:17 06/27/17 05:17 06/26/17 06/27/17 06/27/17 23:08 05:17 05:17 Creatine Kinase 48 L CK-MB (CK-2) 1.16 1.11 Troponin I 0.019 0.017 EKG Comments: Shows atrial flutter with heart rate in the 50s. Impressions: Chest/Abdomen CTA 06/26/17 00:00 IMPRESSION: There is no evidence of pulmonary emboli. There is a small to moderate right pleural effusion and mild subsegmental atelectasis in the right base. Collateral vessels are present in the left axilla and upper left chest. Chest X-Ray 06/26/17 16:06 IMPRESSION: Cardiomegaly. Small right pleural effusion. Head CT 06/26/17 16:06 IMPRESSION: 1. No evidence of acute event involving the brain. 2. Mild atrophy and mild chronic small vessel ischemic disease. EVIDENCE OF ACUTE STROKE: No Assessment & Plan - Diagnosis (1) Atrial flutter, chronic Is this a current diagnosis for this admission?: Yes (2) Syncope Qualifiers: Syncope type: unspecified Qualified Code(s): R55 - Syncope and collapse Is this a current diagnosis for this admission?: Yes (3) Hypertension Qualifiers: Hypertension type: essential hypertension Qualified Code(s): I10 - Essential (primary) hypertension Is this a current diagnosis for this admission?: Yes (4) Falls Qualifiers: Encounter type: sequela Qualified Code(s): W19.XXXS - Unspecified fall, sequela Is this a current diagnosis for this admission?: Yes (5) Coronary artery disease Qualifiers: Coronary Disease-Associated Artery/Lesion type: [place] artery [place] vs. transplanted heart: [place] heart Associated angina: angina presence unspecified Qualified Code(s): I25.10 - Atherosclerotic heart disease of [place] coronary artery without angina pectoris Is this a current diagnosis for this admission?: Yes (6) Obesity Qualifiers: Obesity type: unspecified obesity type Obesity classification: unspecified obesity classification Is this a current diagnosis for this admission?: Yes (7) CHF (congestive heart failure) Qualifiers: Heart failure type: combined systolic and diastolic Heart failure chronicity: chronic Qualified Code(s): I50.42 - Chronic combined systolic ( congestive) and diastolic (congestive) heart failure Is this a current diagnosis for this admission?: Yes - Notes Notes: Atrial flutter fibrillation: At this point rate is well controlled. Recommend chronic anticoagulation. May need OT PT assessment because of history of fall. Have been informed by the hospitalist that patient prefers tertiary care transfer for further evaluation of syncope and atrial flutter as well as if there is any need for permanent pacemaker placement. See Supervisor on-call at [facility] has kindly accepted the patient. Syncope: Multiple differential diagnosis includes cardiac dysrhythmia, either bradycardia or tachyarrhythmia, postural hypotension, vertebrobasilar insufficiency etc. are in the differential diagnosis. Recommend continue cardiac monitoring. Patient being discharged to another acute care hospital as patient wants to know for sure if pacemaker is needed or not. Patient also has significant social problems which limits his ability to seek outpatient follow- up and care. Hypertension: Currently stable. Recommend MELODY inhibitor/ARB as preferred agent. Falls: Patient will benefit from physical therapy, OT PT assessment. Coronary artery disease: Patient noted to have coronary calcification versus stents in the coronaries. Recommend statin therapy, antiplatelet therapy. Obesity: Patient will benefit from weight loss. Patient will also benefit from evaluation for any underlying sleep apnea as treatment of underlying sleep apnea may prevent future cardiovascular event and also needs for pacemaker. CHF: Seems fairly compensated. Patient would benefit from salt and fluid restriction. Will add small dose of MELODY inhibitor/ARB. Beta-blockers currently contraindicated due to bradycardia. 2D echocardiogram shows mildly depressed LVEF with apical akinesia. CHF related to systolic and diastolic dysfunction combined. - Time Time with patient: Greater than 35 minutes - CODE STATUS was discussed, patient remains full code. Multiple medical problems were addressed. More than 50% of the time spent coordinating care, discussing management plans with involved caregivers. Management plans discussed with involved personnels. Medical decision making was of moderate to high complexity, patient's has multiple comorbidities. Medications reviewed and adjusted accordingly: Yes
--- NOTE | 2017-06-28 20:43 | Progress Note ---
Provider Note Provider Note: Patient without complaint, neuro symptoms are resolved denies weakness or slurred speech. No chest pain or shortness of breath or palpitations. Cardiology evaluation appreciated. MRI pending. We will continue to monitor patient on telemetry. Also, correct hypokalemia with additional KCl 40 M EQ p.o. in addition to the wound he received this morning for potassium of 3.0 as patient also on Lasix. Follow-up Chem-7 in a.m.
--- NOTE | 2017-06-28 20:51 | Progress Note ---
Provider Note Provider Note: Addendum: The notes below was entered in error in this chart/electronic medical record. The note was meant for a different patient. Please disregard the comments below. Thank you.
== END 2017-06-28 13:45 | disposition short-term general hospital (02) | DRG 309 ==
LOC: ER 15:29 → EDBD 15:29 → EH 18:42 → OBSVTOIN 18:42 → 3S 21:45
PROVIDERS: ADMIT Internal Medicine; ATTEND Internal Medicine
DX: I48.92 Unspecified atrial flutter (principal); I50.42 Chronic combined systolic (congestive) and diastolic (congestive) heart failure; I11.0 Hypertensive heart disease with heart failure; R00.1 Bradycardia, unspecified; I25.10 Atherosclerotic heart disease of native coronary artery without angina pectoris; E66.01 Morbid (severe) obesity due to excess calories; W05.0XXA Fall from non-moving wheelchair, initial encounter; E78.00 Pure hypercholesterolemia, unspecified; Z95.5 Presence of coronary angioplasty implant and graft; R55 Syncope and collapse; I48.2 Chronic atrial fibrillation; I49.5 Sick sinus syndrome; F32.9 Major depressive disorder, single episode, unspecified; J44.9 Chronic obstructive pulmonary disease, unspecified; Y92.017 Garden or yard in single-family (private) house as the place of occurrence of the external cause; Z68.38 Body mass index [BMI] 38.0-38.9, adult; I25.2 Old myocardial infarction; Z79.899 Other long term (current) drug therapy; Z87.891 Personal history of nicotine dependence; Z79.82 Long term (current) use of aspirin; Z82.49 Family history of ischemic heart disease and other diseases of the circulatory system
CPT/HCPCS: 36415; 70450; 71046; 71275; 80048; 80053; 80061; 82550; 82553; 83880; 84443; 84484; 85025; 85027; 93005; 93010; 93306; 99285; G8978-GP; G8979-GP; J3490